=== PATIENT | female | born 1960 | race Two or more races ===

== ENCOUNTER 2016-06-29 12:36 | Emergency (ER) | payer SELFPAY ==
[~2016-06-29 12:36] MED LIST: CETI10TA16 PO; CYCL10TA2 PO; DULO30CA2 PO; HYDR-2666 PO; METR500T PO; NAPR220C4 PO
[2016-06-29 13:58] VITALS: BP 131/60
[2016-06-29] MEDS ORDERED: IV NORMAL SALINE 1000ML BAG 1,000 ML IV SCH (14:33)
--- NOTE | 2016-06-29 14:38 | ED.ADGEN ---
Past Medical History Past Medical History: Fibromyalgia, Other Additional Past Medical Histor: Seasonal allergies, Fibromyalgia Past Surgical History: Cholecystectomy, Hysterectomy Additional Past Surgical Histo: Bilateral oophrectomy Alcohol Use: None Drug Use: None Adult General Chief Complaint Chief Complaint: ABDOMINAL PAIN HPI HPI Patient is a 55 year old female presents emergency department complaining of 2 day history of worsening right upper quadrant pain. She states that it is similar to the pain she is to have with her gallbladder she has associated nausea and vomiting. She has not taken any medications prior to arrival. She does not that she has chronically elevated liver function test. She has recently had a stop her Cymbalta due to lack of insurance coverage. Last bowel movement was today and was normal Review of Systems Review of Systems Constitutional: Denies fever or chills. [] Eyes: Denies change in visual acuity. [] HENT: Denies nasal congestion or sore throat. [] Respiratory: Denies cough or shortness of breath. [] Cardiovascular: Denies chest pain or edema. [] GI: Denies abdominal pain, nausea, vomiting, bloody stools or diarrhea. [] : Denies dysuria. [] Musculoskeletal: Denies back pain or joint pain. [] Integument: Denies rash. [] Neurologic: Denies headache, focal weakness or sensory changes. [] Endocrine: Denies polyuria or polydipsia. [] Lymphatic: Denies swollen glands. [] Psychiatric: Denies depression or anxiety. [] Current Medications Current Medications Current Medications Medications (Trade) Dose Ordered Sig/Cortney Start Time Stop Time Status Last Admin Dose Admin Fentanyl Citrate (Fentanyl 2ml Vial) 75 mcg 1X ONCE 06/29/16 14:45 06/29/16 14:46 DC 06/29/16 15:07 75 MCG Ondansetron HCl 4 mg 4 mg 1X ONCE 06/29/16 14:45 06/29/16 14:46 DC 06/29/16 15:07 4 MG Sodium Chloride (Iv Sodium Chloride 0.9% 1000ml Bag) 1,000 ml @ 1,000 mls/hr Q1H 06/29/16 14:33 06/29/16 15:32 DC 06/29/16 15:06 1,000 MLS/HR Allergies Allergies Allergies Coded Allergies Type Severity Reaction Last Updated Verified Cephalexin Monohydrate Allergy Intermediate Rash 09/25/13 Yes Penicillins Allergy Intermediate Rash 06/14/13 Yes Sulfa (Sulfonamide Antibiotics) Allergy Intermediate Swelling 06/14/13 Yes peanut Allergy Intermediate Rash 02/14/15 Yes Physical Exam Physical Exam Constitutional: Well developed, well nourished, no acute distress, non-toxic appearance. [] HENT: Normocephalic, atraumatic, bilateral external ears normal, oropharynx moist, no oral exudates, nose normal. [] Eyes: PERRLA, EOMI, conjunctiva normal, no discharge. [] Neck: Normal range of motion, no tenderness, supple, no stridor. [] Cardiovascular:Heart rate regular rhythm, no murmur [] Lungs & Thorax: Bilateral breath sounds clear to auscultation [] Abdomen: Bowel sounds normal, soft, epigastric and right upper quadrant tenderness without peritoneal signs, no masses, no pulsatile masses. [] Skin: Warm, dry, no erythema, no rash. [] Back: No tenderness, no CVA tenderness. [] Extremities: No tenderness, no cyanosis, no clubbing, ROM intact, no edema. [] Neurologic: Alert and oriented X 3, normal motor function, normal sensory function, no focal deficits noted. [] Psychologic: Affect normal, judgement normal, mood normal. [] Current Patient Data Vital Signs Vital Signs Date Time Temp Pulse Resp B/P Pulse Ox O2 Delivery O2 Flow Rate FiO2 06/29/16 15:40 Room Air 06/29/16 13:58 97.9 72 18 131/60 99 97.9 Lab Values Laboratory Tests Test 06/29/16 13:55 White Blood Count 5.2x10^3/uL (4.0-11.0) Red Blood Count 4.95x10^6/uL (3.50-5.40) Hemoglobin 14.0g/dL (12.0-15.5) Hematocrit 41.7% (36.0-47.0) Mean Corpuscular Volume 84fL (79-100) Mean Corpuscular Hemoglobin 28pg (25-35) Mean Corpuscular Hemoglobin Concent 34g/dL (31-37) Red Cell Distribution Width 14.6% (11.5-14.5) H Platelet Count 197x10^3/uL (140-400) Neutrophils (%) (Auto) 51% (31-73) Lymphocytes (%) (Auto) 38% (24-48) Monocytes (%) (Auto) 8% (0-9) Eosinophils (%) (Auto) 3% (0-3) Basophils (%) (Auto) 1% (0-3) Neutrophils # (Auto) 2.7x10^3uL (1.8-7.7) Lymphocytes # (Auto) 1.9x10^3/uL (1.0-4.8) Monocytes # (Auto) 0.4x10^3/uL (0.0-1.1) Eosinophils # (Auto) 0.2x10^3/uL (0.0-0.7) Basophils # (Auto) 0.0x10^3/uL (0.0-0.2) Urine Collection Type Unknown Urine Color Yellow Urine Clarity Clear Urine pH 6.5 Urine Specific [place] 1.020 Urine Protein Negativemg/dL (NEG-TRACE) Urine Glucose (UA) Negativemg/dL (NEG) Urine Ketones (Stick) Negativemg/dL (NEG) Urine Blood Negative (NEG) Urine Nitrite Negative (NEG) Urine Bilirubin Negative (NEG) Urine Urobilinogen Dipstick 0.2mg/dL (0.2 mg/dL) Urine Leukocyte Esterase Moderate (NEG) Urine RBC 0/HPF (0-2) Urine WBC 1-4/HPF (0-4) Urine Squamous Epithelial Cells Many/LPF Urine Bacteria Moderate/HPF (0-FEW) Urine Mucus Marked/LPF Sodium Level 139mmol/L (136-145) Potassium Level 4.2mmol/L (3.5-5.1) Chloride Level 103mmol/L (98-107) Carbon Dioxide Level 28mmol/L (21-32) Anion Gap 8 (6-14) Blood Urea Nitrogen 8mg/dL (7-20) Creatinine 0.9mg/dL (0.6-1.0) Estimated GFR (Cockcroft-Gault) 65.0 Glucose Level 138mg/dL (70-99) H Calcium Level 9.1mg/dL (8.5-10.1) Total Bilirubin 0.6mg/dL (0.2-1.0) Direct Bilirubin 0.1mg/dL (0.0-0.2) Aspartate Amino Transferase (AST) 116U/L (15-37) H Alanine Aminotransferase (ALT) 162U/L (14-59) H Alkaline Phosphatase 75U/L (46-116) Troponin I Quantitative 0.018ng/mL (0.000-0.055) Total Protein 7.9g/dL (6.4-8.2) Albumin 3.6g/dL (3.4-5.0) Lipase 451U/L (73-393) H Laboratory Tests 06/29/16 13:55 Laboratory Tests 06/29/16 13:55 EKG EKG EKG interpreted by me, sinus rhythm, 69 beats for minute, no ST segment elevation, normal axis. [] Radiology/Procedures Radiology/Procedures Exam performed: Acute abdominal series. Clinical indication: Abdominal pain for 2 days Date of Service: 06/29/16. Comparison: Single view chest from 07/07/15 Findings: One view chest radiograph reveal a normal cardiomediastinal contour. The lungs are clear. Evidence of pleural fluid or free subdiaphragmatic air is absent. The bowel pattern is unremarkable. No pathologic calcification or organomegaly is seen. Impression: Normal appearing acute abdominal series to include one view chest radiograph. DICTATED and SIGNED BY: HONEY CLARK MD DATE: 06/29/16 5116 CC: HORACE TILLMAN MD; NO PCP ~ [] Course & Med Decision Making Course & Med Decision Making Pertinent Labs and Imaging studies reviewed. (See chart for details) The patient has possible urinary tract infection. I did prescribe her Cipro for this. She also has an elevated lipase and exam consistent with pancreatitis. The patient has had pancreatitis in the past. We talked about supportive care as well as follow-up instructions. At this point, the patient would like to try to treat this at home was Zofran and pain meds. She will of course return to emergency department sooner she develops any new or worsening symptoms. [] Dragon Disclaimer Dragon Disclaimer This electronic medical record was generated, in whole or in part, using a voice recognition dictation system. HORACE TILLMAN MD Jun 29, 2016 14:38
[2016-06-29] MEDS ORDERED: FENTANYL PF 100 MCG/2 ML VIAL. IV ONE (14:45)
[2016-06-29] MEDS ORDERED: ONDANSETRON PF 4 MG/2 ML VIAL. IV ONE (14:45)
[2016-06-29 14:53] LABS: BILIRUBIN,URINE NEGATIVE (NEG); GLUCOSE,URINE NEGATIVE (NEG); NITRITE,URINE NEGATIVE (NEG); PH,URINE 6.5; PROTEIN,URINE NEGATIVE (NEG-TRACE); UROBILINOGEN,URINE 0.2 mg/dL (0.2 mg/dL)
[2016-06-29 15:02] LABS: BASO % 1 % (0-3); EOS % 3 % (0-3); HEMATOCRIT 41.7 % (36.0-47.0); LYMPH # 1.9 x10^3/uL (1.0-4.8); LYMPH % 38 % (24-48); MEAN CORPUSCULAR HEMOGLOBIN 28 pg (25-35); MEAN CORPUSCULAR HGB CONC 34 g/dL (31-37); MEAN CORPUSCULAR VOLUME 84 fL (79-100); MONO % 8 % (0-9); NEUT % 51 % (31-73); PLATELET COUNT 197 x10^3/uL (140-400); RED BLOOD COUNT 4.95 x10^6/uL (3.50-5.40); RED CELL DISTRIBUTION WIDTH 14.6 % (11.5-14.5); WHITE BLOOD COUNT 5.2 x10^3/uL (4.0-11.0)
--- NOTE | 2016-06-29 15:09 | EKG ---
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
[2016-06-29 15:14] LABS: CALCIUM 9.1 mg/dL (8.5-10.1); CREATININE 0.9 mg/dL (0.6-1.0); POTASSIUM 4.2 mmol/L (3.5-5.1)
[2016-06-29 15:20] LABS: ALBUMIN 3.6 g/dL (3.4-5.0); DIRECT BILIRUBIN 0.1 mg/dL (0.0-0.2); TOTAL BILIRUBIN 0.6 mg/dL (0.2-1.0); TOTAL PROTEIN 7.9 g/dL (6.4-8.2)
[2016-06-29 15:21] LABS: BACTERIA,URINE MODERATE /HPF (0-FEW); RBC,URINE 0 /HPF (0-2); SQUAMOUS EPITHELIAL CELL,UR MANY /LPF
[2016-06-29] MEDS ORDERED: CIPR500T94 PO (16:04)
[2016-06-29] MEDS ORDERED: HYDR-971 PO (16:05)
[2016-06-29] MEDS ORDERED: ONDA4TAB10 SL (16:05)
--- NOTE | 2016-06-29 16:17 | RAD ---
Exam performed: Acute abdominal series. Clinical indication: Abdominal pain for 2 days Date of Service: 06/29/16. Comparison: Single view chest from 07/07/15 Findings: One view chest radiograph reveal a normal cardiomediastinal contour. The lungs are clear. Evidence of pleural fluid or free subdiaphragmatic air is absent. The bowel pattern is unremarkable. No pathologic calcification or organomegaly is seen. Impression: Normal appearing acute abdominal series to include one view chest radiograph.
== END 2016-06-29 16:44 | disposition home or self-care (01) ==
LOC: ER 12:36
DX: R10.11 Right upper quadrant pain (principal); Z88.1 Allergy status to other antibiotic agents; Z88.0 Allergy status to penicillin; Z88.2 Allergy status to sulfonamides; Z91.010 Allergy to peanuts
CPT/HCPCS: 36415; 74022; 80048; 80076; 81001; 83690; 84484; 85027; 93005; 96361; 96374; 96375; 99285; J2405; J3010; J7030; 87086

== ENCOUNTER 2016-07-08 19:29 | Emergency (ER) | payer SELFPAY ==
[~2016-07-08] VITALS: Ht 157.5 cm; Wt 99.8 kg
[~2016-07-08 19:29] MED LIST changes: +CIPR500T94 PO; +HYDR-971 PO; +ONDA4TAB10 SL
[2016-07-08 20:13] VITALS: BP 169/73
[2016-07-08] MEDS ORDERED: IBUPROFEN 800 MG TABLET. PO ONE (20:45)
[2016-07-08] MEDS ORDERED: ACETAMINOPHEN 500 MG TABLET PO ONE (20:45)
[2016-07-08 20:56] LABS: OBC FLU VALID
[2016-07-08] MEDS ORDERED: IV NORMAL SALINE 1000ML BAG 1,000 ML IV ONE (21:45)
--- NOTE | 2016-07-08 22:34 | PHYS DOC ---
Past Medical History Past Medical History: Fibromyalgia, Pancreatitis, Other Additional Past Medical Histor: Seasonal allergies, Fibromyalgia Past Surgical History: Cholecystectomy, Hysterectomy Additional Past Surgical Histo: Bilateral oophrectomy Alcohol Use: None Drug Use: None Adult General Chief Complaint Chief Complaint: SYNCOPE HPI HPI Patient is a 55 year old female who presents with 2 days of cough, rhinorrhea, chills, myalgia, and fatigue. She denies chest pain, dyspnea, palpitations, leg pain or swelling, diarrhea. Denies sick contacts. She does have some lightheadedness and when she went to chest x-ray she had a pre-syncopal episode. She was feeling lightheaded, then her vision narrowed, then she did not pass all the way out but felt very weak. Review of Systems Review of Systems Constitutional: Has fever and chills [] Eyes: Denies change in visual acuity, redness, or eye pain [] HENT: Denies sore throat [] Respiratory: Denies shortness of breath [] Cardiovascular: No additional information not addressed in HPI [] GI: Denies abdominal pain, nausea, vomiting, bloody stools or diarrhea [] : Denies dysuria or hematuria [] Musculoskeletal: Denies back pain or joint pain [] Integument: Denies rash or skin lesions [] Neurologic: Denies headache, focal weakness or sensory changes [] Endocrine: Denies polyuria or polydipsia [] Current Medications Current Medications Current Medications Medications (Trade) Dose Ordered Sig/Cortney Start Time Stop Time Status Last Admin Dose Admin Acetaminophen (Tylenol) 1,000 mg 1X ONCE 07/08/16 20:45 07/08/16 20:46 DC 07/08/16 20:52 1,000 MG Ibuprofen 800 mg 800 mg 1X ONCE 07/08/16 20:45 07/08/16 20:46 DC 07/08/16 20:52 800 MG Sodium Chloride (Iv Sodium Chloride 0.9% 1000ml Bag) 1,000 ml @ 1,000 mls/hr 1X ONCE 07/08/16 21:45 07/08/16 22:44 DC 07/08/16 21:46 1,000 MLS/HR Allergies Allergies Allergies Coded Allergies Type Severity Reaction Last Updated Verified Cephalexin Monohydrate Allergy Intermediate Rash 09/25/13 Yes Penicillins Allergy Intermediate Rash 06/14/13 Yes Sulfa (Sulfonamide Antibiotics) Allergy Intermediate Swelling 06/14/13 Yes peanut Allergy Intermediate Rash 02/14/15 Yes Physical Exam Physical Exam Constitutional: Well developed, well nourished, no acute distress, non-toxic appearance. [] HENT: Normocephalic, atraumatic, bilateral external ears normal, oropharynx moist, nose normal. [] Eyes: PERRLA, EOMI. [] Neck: Normal range of motion, supple. [] Cardiovascular:Heart rate regular rhythm [] Lungs & Thorax: Bilateral breath sounds clear to auscultation [] Abdomen: Bowel sounds normal, soft, no tenderness. [] Skin: Warm, dry, no erythema, no rash. [] Back: Normal range of motion. [] Extremities: No tenderness, ROM intact, no edema. [] Neurologic: Alert and oriented X 3, normal motor function, normal sensory function, no focal deficits noted. [] Psychologic: Affect normal, judgement normal, mood normal. [] Current Patient Data Vital Signs Vital Signs Date Time Temp Pulse Resp B/P Pulse Ox O2 Delivery O2 Flow Rate FiO2 07/08/16 20:13 102.3 110 18 99 Room Air 102.3 Lab Values Laboratory Tests Test 07/08/16 20:18 07/08/16 21:24 Influenza Type A Antigen Positive (NEGATIVE) Influenza Type B Antigen Negative (NEGATIVE) Glucose (Fingerstick) 112mg/dL (70-99) H Course & Med Decision Making Course & Med Decision Making Pertinent Labs and Imaging studies reviewed. (See chart for details) She is positive for influenza A. She feels better after IV fluids. She is ambulatory with a steady gait and would like to go home. I offered Tamiflu, but she declined. Return precautions given. She understands and agrees with plan. Dragon Disclaimer Dragon Disclaimer This electronic medical record was generated, in whole or in part, using a voice recognition dictation system. Departure Departure Impression: Primary Impression: Influenza Disposition: 01 HOME, SELF-CARE Condition: STABLE Referrals: NO PCP (PCP) Patient Instructions: Influenza, Adult, [id number] Additional Instructions: Drink liquids to stay hydrated. Take Tylenol or ibuprofen as needed for pain or fever. Follow-up with your primary care doctor. Return for any concerns. Ca VIVEROS MD Jul 08, 2016 22:33
--- NOTE | 2016-07-09 07:46 | RAD ---
2 view CXR: Clinical indications: Fever and shortness of breath for 2 days. Comparison: June 29, 2016. Findings: No acute lung infiltrate or pleural effusion or pulmonary edema or lung mass or pneumothorax is seen. The heart size, pulmonary vasculature, mediastinum and both delma are unremarkable. The osseous structures appear intact. Impression: No acute radiographic abnormality is seen.
== END 2016-07-08 22:46 | disposition home or self-care (01) ==
LOC: ER 19:29
DX: J11.1 Influenza due to unidentified influenza virus with other respiratory manifestations (principal); M79.7 Fibromyalgia; Z88.0 Allergy status to penicillin; Z88.2 Allergy status to sulfonamides; Z88.1 Allergy status to other antibiotic agents; Z91.010 Allergy to peanuts
CPT/HCPCS: 71020; 82947; 87804; 96360; 99285; J7030

== ENCOUNTER 2017-09-25 19:16 | Emergency (ER) | payer SELFPAY | END 2017-09-25 19:40 | disposition home or self-care (01) | LOC: ER 19:16 | DX: L85.3 Xerosis cutis (principal); Z90.49 Acquired absence of other specified parts of digestive tract; Z90.710 Acquired absence of both cervix and uterus; Z90.722 Acquired absence of ovaries, bilateral; Z88.0 Allergy status to penicillin; Z88.2 Allergy status to sulfonamides; Z88.1 Allergy status to other antibiotic agents; Z91.010 Allergy to peanuts | CPT/HCPCS: 99283 ==

== ENCOUNTER 2017-12-30 02:06 | Emergency (ER) | payer OTHER ==
[2017-12-30 02:54] LABS: ADD MAN DIFF? NO
[2017-12-30 02:57] LABS: BASO % 1 % (0-3); EOS # 0.1 x10^3/uL (0.0-0.7); EOS % 2 % (0-3); HEMATOCRIT 42.2 % (36.0-47.0); HEMOGLOBIN 14.9 g/dL (12.0-15.5); LYMPH % 31 % (24-48); MEAN CORPUSCULAR HEMOGLOBIN 29 pg (25-35); MEAN CORPUSCULAR HGB CONC 35 g/dL (31-37); MEAN CORPUSCULAR VOLUME 82 fL (79-100); MONO # 0.4 x10^3/uL (0.0-1.1); MONO % 5 % (0-9); NEUT # 4.1 x10^3uL (1.8-7.7); NEUT % 62 % (31-73); PLATELET COUNT 216 x10^3/uL (140-400); RED BLOOD COUNT 5.14 x10^6/uL (3.50-5.40); RED CELL DISTRIBUTION WIDTH 14.1 % (11.5-14.5); WHITE BLOOD COUNT 6.6 x10^3/uL (4.0-11.0)
[2017-12-30] MEDS: ONDANSETRON PF 4 MG/2 ML VIAL. IV (02:58)
[2017-12-30] MEDS: HYOSCYAMINE 0.125 MG TAB.RAPDIS PO (02:58)
[2017-12-30] MEDS: FAMOTIDINE 20 MG/2 ML VIAL IVP (02:58)
[2017-12-30 03:09] LABS: ANION GAP 12 (6-14); BLOOD UREA NITROGEN 12 mg/dL (7-20); BUN/CREATININE RATIO 12 (6-20); CALCIUM 9.7 mg/dL (8.5-10.1); CARBON DIOXIDE 24 mmol/L (21-32); CHLORIDE 100 mmol/L (98-107); GFR 57.1; GLUCOSE 132 mg/dL (70-99); POTASSIUM 3.6 mmol/L (3.5-5.1); SODIUM 136 mmol/L (136-145)
[2017-12-30 03:14] LABS: ALBUMIN/GLOBULIN RATIO 0.9 (1.0-1.7); ALK PHOS 68 U/L (46-116); ALT (SGPT) 68 U/L (14-59); AST (SGOT) 46 U/L (15-37); BILIRUBIN,URINE SMALL (NEG); CLARITY,URINE CLEAR; COLOR,URINE AMBER; GLUCOSE,URINE NEGATIVE (NEG); LIPASE 259 U/L (73-393); MAGNESIUM 2.1 mg/dL (1.8-2.4); NITRITE,URINE NEGATIVE (NEG); PH,URINE 5.5; PROTEIN,URINE NEGATIVE (NEG-TRACE); TOTAL BILIRUBIN 0.8 mg/dL (0.2-1.0); TOTAL PROTEIN 8.4 g/dL (6.4-8.2); UROBILINOGEN,URINE 0.2 mg/dL (0.2 mg/dL)
[2017-12-30 03:26] LABS: BACTERIA,URINE FEW /HPF (0-FEW); WBC,URINE OCC /HPF (0-4)
[2017-12-30 03:27] LABS: AMORPHOUS SEDIMENT,UR PRESENT /HPF; SQUAMOUS EPITHELIAL CELL,UR MOD /LPF
== END 2017-12-30 04:50 | disposition home or self-care (01) ==
LOC: ER 02:06
DX: R10.84 Generalized abdominal pain (principal); R11.2 Nausea with vomiting, unspecified; R10.13 Epigastric pain; R19.7 Diarrhea, unspecified; Z90.49 Acquired absence of other specified parts of digestive tract; Z90.710 Acquired absence of both cervix and uterus; Z90.722 Acquired absence of ovaries, bilateral; Z88.0 Allergy status to penicillin; Z88.1 Allergy status to other antibiotic agents; Z88.2 Allergy status to sulfonamides; Z91.010 Allergy to peanuts
CPT/HCPCS: 36415; 80053; 81001; 83690; 83735; 85025; 96374; 96375; 99284-25; J2405; S0028

== ENCOUNTER → 2017-12-30 | Day surgery (SDC) | payer OTHER, BC ==
[~2017-12-30] MED LIST changes: -CETI10TA16 PO; -CIPR500T94 PO; -CYCL10TA2 PO; -DULO30CA2 PO; -HYDR-2666 PO; -HYDR-971 PO; +LIDOCAINE 1% PF 2 ML VIAL. ID; +LIDOCAINE 2% PF Vial for OR 5 ML VIAL.; -METR500T PO; +MORPHINE SULFATE 2 MG/ML DISP.SYRIN. IV; -NAPR220C4 PO; -ONDA4TAB10 SL; +ONDANSETRON PF 4 MG/2 ML VIAL. IV; +PROCHLORPERAZINE 10 MG/2 ML VIAL. IV; +PROPOFOL 40 ML IV; +fentaNYL PF VIAL 100 MCG/2 ML VIAL IV
[2017-12-30] MEDS: IV RINGERS,LACTATED 1000ML 1,000 ML IV (11:51)
== END | disposition home or self-care (01) ==
LOC: ENDOS 11:08
DX: Z12.11 Encounter for screening for malignant neoplasm of colon (principal); K64.0 First degree hemorrhoids; K21.9 Gastro-esophageal reflux disease without esophagitis; J45.909 Unspecified asthma, uncomplicated; Z87.19 Personal history of other diseases of the digestive system; Z90.49 Acquired absence of other specified parts of digestive tract; Z90.710 Acquired absence of both cervix and uterus; Z79.899 Other long term (current) drug therapy; Z82.49 Family history of ischemic heart disease and other diseases of the circulatory system; Z80.0 Family history of malignant neoplasm of digestive organs; Z88.0 Allergy status to penicillin; Z88.1 Allergy status to other antibiotic agents; Z91.010 Allergy to peanuts; Z90.722 Acquired absence of ovaries, bilateral
CPT/HCPCS: 45378; J2001; J2704

== ENCOUNTER 2018-03-27 09:13 | Emergency (ER) | payer OTHER ==
[~2018-03-27] VITALS: Ht 162.6 cm; Wt 99.5 kg
[~2018-03-27 09:13] MED LIST changes: +CETI10TA16 PO; +CIPR500T94 PO; +CLIN300C8 PO; +CYCL10TA2 PO; +DULO30CA2 PO; +GABA-585 PO; +HYDR-2758 PO; +HYDR-971 PO; +HYOS0.1265 SL; -LIDOCAINE 1% PF 2 ML VIAL. ID; -LIDOCAINE 2% PF Vial for OR 5 ML VIAL.; +METR500T PO; -MORPHINE SULFATE 2 MG/ML DISP.SYRIN. IV; +NAPR220C4 PO; +ONDA4TAB10 SL; +ONDA4TAB7 PO; -ONDANSETRON PF 4 MG/2 ML VIAL. IV; -PROCHLORPERAZINE 10 MG/2 ML VIAL. IV; -PROPOFOL 40 ML IV; -fentaNYL PF VIAL 100 MCG/2 ML VIAL IV
[2018-03-27 09:22] VITALS: BP 131/76
--- NOTE | 2018-03-27 09:39 | PHYS DOC ---
Past Medical History Past Medical History: Fibromyalgia, Pancreatitis, Other Additional Past Medical Histor: Seasonal allergies, Fibromyalgia Past Surgical History: Cholecystectomy, Hysterectomy Additional Past Surgical Histo: Bilateral oophrectomy Alcohol Use: None Drug Use: None Adult General Chief Complaint Chief Complaint: COUGH HPI HPI Patient is a 57 year old female who presents with respiratory symptoms. Patient states she has been ill over the last month. She had upper respiratory symptoms including runny nose, cough, congestion, and general malaise. She states over the last several days, her cough has worsened and now she is coughing up sputum. No fever. She had been evaluated for the same sx by her PCP and prescribed some medication to help with her cough symptoms. Review of Systems Review of Systems Constitutional: Denies fever Eyes: Denies change in visual acuity HENT: Denies sore throat Respiratory: Denies shortness of breath Cardiovascular: No additional information not addressed in HPI GI: Denies abdominal pain, nausea : Denies dysuria Musculoskeletal: Denies back pain Integument: Denies rash or skin lesions Neurologic: Denies headache All other systems were reviewed and found to be within normal limits, except as documented in this note. Allergies Allergies Allergies Coded Allergies Type Severity Reaction Last Updated Verified Cephalexin Monohydrate Allergy Intermediate Rash 12/30/17 Yes Penicillins Allergy Intermediate Rash 12/30/17 Yes Sulfa (Sulfonamide Antibiotics) Allergy Intermediate Swelling 12/30/17 Yes peanut Allergy Intermediate Rash 12/30/17 Yes Physical Exam Physical Exam Constitutional: Well developed, well nourished, no acute distress, non-toxic HENT: Normocephalic, atraumatic, bilateral external ears normal, oropharynx moist, no oral exudates Eyes: PERRLA, EOMI, conjunctiva normal Neck: Normal range of motion, no tenderness Cardiovascular:Heart rate regular rhythm, no murmur Lungs & Thorax: Bilateral breath sounds clear to auscultation Skin: Warm, dry, no erythema, no rash Extremities: No edema Neurologic: Alert and oriented X 3 Psychologic: Affect normal EKG EKG [] Radiology/Procedures Radiology/Procedures [] Course & Med Decision Making Course & Med Decision Making Pertinent Labs and Imaging studies reviewed. (See chart for details) Patient is evaluated in the emergency department for respiratory symptoms that have been going on for over a month. Her lung sounds are clear. She has good air movement in all wilkes. Posterior oral pharynx is mildly injected but no exudates. Given the chronicity of her symptoms, the patient will be treated with azithromycin. She is advised to use [id number] cold remedies as needed for symptom relief. Contact her primary care doctor for routine follow- up as needed. Dragon Disclaimer Dragon Disclaimer This electronic medical record was generated, in whole or in part, using a voice recognition dictation system. Departure Departure Referrals: WARREN CALDERON MD (PCP) ESTRELLA MONTELONGO DO Mar 27, 2018 09:39
[2018-03-27] MEDS ORDERED: AZIT250T6 PO (09:42)
[2018-03-27] MEDS ORDERED: BENZ100C PO (09:42)
== END 2018-03-27 09:40 | disposition home or self-care (01) ==
LOC: ER 09:13
DX: R05 Cough (principal); R09.81 Nasal congestion; R09.89 Other specified symptoms and signs involving the circulatory and respiratory systems; R53.81 Other malaise; Z88.0 Allergy status to penicillin; Z88.1 Allergy status to other antibiotic agents; Z88.2 Allergy status to sulfonamides; Z91.010 Allergy to peanuts
CPT/HCPCS: 99283

== ENCOUNTER 2018-06-30 06:30 | Emergency (ER) | payer OTHER ==
[~2018-06-30] VITALS: Ht 165.1 cm; Wt 95.3 kg
[~2018-06-30 06:30] MED LIST changes: +AZIT250T6 PO; +BENZ100C PO; -HYDR-2758 PO; +HYDR-2761 PO; +HYDR-3164 PO; -HYDR-971 PO
[2018-06-30] MEDS ORDERED: ONDANSETRON PF 4 MG/2 ML VIAL. IV ONE (07:00)
[2018-06-30] MEDS ORDERED: MORPHINE SULFATE 10 MG/ML VIAL. IV ONE (07:00)
[2018-06-30 07:01] LABS: BILIRUBIN,URINE NEGATIVE (NEG); CLARITY,URINE CLEAR; COLOR,URINE YELLOW; NITRITE,URINE NEGATIVE (NEG); PH,URINE 5.5; PROTEIN,URINE NEGATIVE (NEG-TRACE); UROBILINOGEN,URINE 0.2 mg/dL (0.2 mg/dL)
[2018-06-30 07:18] LABS: BASO % 1 % (0-3); EOS # 0.2 x10^3/uL (0.0-0.7); EOS % 4 % (0-3); HEMATOCRIT 42.8 % (36.0-47.0); HEMOGLOBIN 14.2 g/dL (12.0-15.5); LYMPH # 2.5 x10^3/uL (1.0-4.8); LYMPH % 45 % (24-48); MEAN CORPUSCULAR HEMOGLOBIN 28 pg (25-35); MEAN CORPUSCULAR HGB CONC 33 g/dL (31-37); MEAN CORPUSCULAR VOLUME 84 fL (79-100); MONO # 0.4 x10^3/uL (0.0-1.1); MONO % 7 % (0-9); NEUT # 2.4 x10^3uL (1.8-7.7); NEUT % 43 % (31-73); PLATELET COUNT 195 x10^3/uL (140-400); RED BLOOD COUNT 5.11 x10^6/uL (3.50-5.40); RED CELL DISTRIBUTION WIDTH 13.9 % (11.5-14.5); WHITE BLOOD COUNT 5.5 x10^3/uL (4.0-11.0)
[2018-06-30 07:20] LABS: BACTERIA,URINE MODERATE /HPF (0-FEW); SQUAMOUS EPITHELIAL CELL,UR MANY /LPF
[2018-06-30 07:41] LABS: CALCIUM 9.1 mg/dL (8.5-10.1)
[2018-06-30 07:42] LABS: GFR 57.1; POTASSIUM 3.9 mmol/L (3.5-5.1)
[2018-06-30 07:47] LABS: ALBUMIN 3.8 g/dL (3.4-5.0); ALBUMIN/GLOBULIN RATIO 0.9 (1.0-1.7); C-REACTIVE PROTEIN 1.8 mg/L (0-3.3); TOTAL BILIRUBIN 0.5 mg/dL (0.2-1.0); TOTAL PROTEIN 7.9 g/dL (6.4-8.2)
[2018-06-30 08:43] VITALS: BP 154/67
--- NOTE | 2018-06-30 08:55 | PHYS DOC ---
Past Medical History Past Medical History: Fibromyalgia, Kidney Stone, Pancreatitis, Other Additional Past Medical Histor: Seasonal allergies, Fibromyalgia Past Surgical History: Cholecystectomy, Hysterectomy Additional Past Surgical Histo: Bilateral oophrectomy Alcohol Use: None Drug Use: None Adult General Chief Complaint Chief Complaint: ABDOMINAL PAIN HPI HPI Patient is a 57 year old female who presents with midabdominal pain starting this morning. Pain is nonradiating and expiratory throughout upper quadrant. Status post nausea vomiting diarrhea. No flank pain, urinary frequency urgency or hematuria. No history of kidney stones. No fever chills or sweats. No cough, sore throat, chest pain, shortness of breath. Prior cholecystectomy, hysterectomy and bilateral salpingo-oophorectomy. [] Review of Systems Review of Systems Review symptoms as per history of present illness. All other review symptoms are negative. All other systems were reviewed and found to be within normal limits, except as documented in this note. Current Medications Current Medications Current Medications Medications (Trade) Dose Ordered Sig/Cortney Start Time Stop Time Status Last Admin Dose Admin Morphine Sulfate (Morphine Sulfate) 5 mg 1X ONCE 06/30/18 07:00 06/30/18 07:01 DC 06/30/18 07:20 5 MG Ondansetron HCl (Zofran) 4 mg 1X ONCE 06/30/18 07:00 06/30/18 07:01 DC 06/30/18 07:18 4 MG Allergies Allergies Allergies Coded Allergies Type Severity Reaction Last Updated Verified Cephalexin Monohydrate Allergy Intermediate Rash 12/30/17 Yes Penicillins Allergy Intermediate Rash 12/30/17 Yes Sulfa (Sulfonamide Antibiotics) Allergy Intermediate Swelling 12/30/17 Yes peanut Allergy Intermediate Rash 12/30/17 Yes Physical Exam Physical Exam Constitutional: Well developed, well nourished, no acute distress, non-toxic appearance. [] HENT: Normocephalic, atraumatic, bilateral external ears normal, oropharynx moist, no oral exudates, nose normal. [] Eyes: PERRLA, EOMI, conjunctiva normal, no discharge. [] Neck: Normal range of motion, no tenderness, supple, no stridor. [] Cardiovascular:Heart rate regular rhythm, no murmur [] Lungs & Thorax: Bilateral breath sounds clear to auscultation [] Abdomen: Bowel sounds normal, soft, epigastric pain, right upper quadrant pain, tenderness, no rebound, obesity compromising exam.. [] Skin: Warm, dry, no erythema, no rash. [] Back: No tenderness. [] Neurologic: Alert and oriented X 3, normal motor function, normal sensory function, no focal deficits noted. [] Psychologic: Affect normal, judgement normal, mood normal. [] Current Patient Data Vital Signs Vital Signs Date Time Temp Pulse Resp B/P (MAP) Pulse Ox O2 Delivery O2 Flow Rate FiO2 06/30/18 07:20 20 98 Room Air 06/30/18 06:38 98.1 78 165/78 (107) 98.1 Lab Values Laboratory Tests Test 06/30/18 06:30 06/30/18 07:00 Urine Collection Type Void Urine Color Yellow Urine Clarity Clear Urine pH 5.5 Urine Specific [place] 1.015 Urine Protein Negative mg/dL (NEG-TRACE) Urine Glucose (UA) Negative mg/dL (NEG) Urine Ketones (Stick) Negative mg/dL (NEG) Urine Blood Small (NEG) Urine Nitrite Negative (NEG) Urine Bilirubin Negative (NEG) Urine Urobilinogen Dipstick 0.2 mg/dL (0.2 mg/dL) Urine Leukocyte Esterase Moderate (NEG) Urine RBC 3-5 /HPF (0-2) Urine WBC 5-10 /HPF (0-4) Urine Squamous Epithelial Cells Many /LPF Urine Bacteria Moderate /HPF (0-FEW) Urine Mucus Mod /LPF White Blood Count 5.5 x10^3/uL (4.0-11.0) Red Blood Count 5.11 x10^6/uL (3.50-5.40) Hemoglobin 14.2 g/dL (12.0-15.5) Hematocrit 42.8 % (36.0-47.0) Mean Corpuscular Volume 84 fL (79-100) Mean Corpuscular Hemoglobin 28 pg (25-35) Mean Corpuscular Hemoglobin Concent 33 g/dL (31-37) Red Cell Distribution Width 13.9 % (11.5-14.5) Platelet Count 195 x10^3/uL (140-400) Neutrophils (%) (Auto) 43 % (31-73) Lymphocytes (%) (Auto) 45 % (24-48) Monocytes (%) (Auto) 7 % (0-9) Eosinophils (%) (Auto) 4 % (0-3) H Basophils (%) (Auto) 1 % (0-3) Neutrophils # (Auto) 2.4 x10^3uL (1.8-7.7) Lymphocytes # (Auto) 2.5 x10^3/uL (1.0-4.8) Monocytes # (Auto) 0.4 x10^3/uL (0.0-1.1) Eosinophils # (Auto) 0.2 x10^3/uL (0.0-0.7) Basophils # (Auto) 0.0 x10^3/uL (0.0-0.2) Sodium Level 137 mmol/L (136-145) Potassium Level 3.9 mmol/L (3.5-5.1) Chloride Level 102 mmol/L (98-107) Carbon Dioxide Level 27 mmol/L (21-32) Anion Gap 8 (6-14) Blood Urea Nitrogen 11 mg/dL (7-20) Creatinine 1.0 mg/dL (0.6-1.0) Estimated GFR (Cockcroft-Gault) 57.1 BUN/Creatinine Ratio 11 (6-20) Glucose Level 110 mg/dL (70-99) H Calcium Level 9.1 mg/dL (8.5-10.1) Total Bilirubin 0.5 mg/dL (0.2-1.0) Aspartate Amino Transferase (AST) 45 U/L (15-37) H Alanine Aminotransferase (ALT) 70 U/L (14-59) H Alkaline Phosphatase 65 U/L (46-116) C-Reactive Protein, Quantitative 1.8 mg/L (0-3.3) Total Protein 7.9 g/dL (6.4-8.2) Albumin 3.8 g/dL (3.4-5.0) Albumin/Globulin Ratio 0.9 (1.0-1.7) L Lipase 324 U/L (73-393) Laboratory Tests 06/30/18 07:00 Laboratory Tests 06/30/18 07:00 EKG EKG [] Radiology/Procedures Radiology/Procedures [] Course & Med Decision Making Course & Med Decision Making Pertinent Labs and Imaging studies reviewed. (See chart for details) [Symptoms resolved in ED. Lab work reassuring. Recommend watchful waiting PCP follow-up. Return precautions reviewed. Patient verbalizes understanding agreement discharge instructions prior to departure.] Dragon Disclaimer Dragon Disclaimer This electronic medical record was generated, in whole or in part, using a voice recognition dictation system. Departure Departure Impression: Primary Impression: Abdominal pain Disposition: 01 HOME, SELF-CARE Condition: GOOD Patient Instructions: Abdominal Pain (Nonspecific) Additional Instructions: You were in the evaluated emergency department for abdominal pain. Lab work was performed and is nondiagnostic. The cause of your symptoms has not been determined. Please go home and rest, eat bland diet for the next 6-12 hours then progress to a regular diet as tolerated. Follow-up with your PCP in 2-3 days if symptoms persist. Return to the ED if new or worsening symptoms. MARTHA ARRIAZA DO Jun 30, 2018 08:55
== END 2018-06-30 08:55 | disposition home or self-care (01) ==
LOC: ER 06:30
DX: R10.13 Epigastric pain (principal); R10.11 Right upper quadrant pain; R11.2 Nausea with vomiting, unspecified; R19.7 Diarrhea, unspecified; E66.9 Obesity, unspecified; Z68.34 Body mass index [BMI] 34.0-34.9, adult; Z90.49 Acquired absence of other specified parts of digestive tract; Z90.710 Acquired absence of both cervix and uterus; Z90.722 Acquired absence of ovaries, bilateral; Z87.442 Personal history of urinary calculi; Z88.1 Allergy status to other antibiotic agents; Z88.0 Allergy status to penicillin; Z88.2 Allergy status to sulfonamides; Z91.010 Allergy to peanuts
CPT/HCPCS: 36415; 80053; 81001; 83690; 85025; 86140; 87086; 96374; 96375; 99283; J2270; J2405; 99284

== ENCOUNTER → 2018-09-16 | Outpatient (CLI) | payer OTHER ==
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
== END | disposition home or self-care (01) ==
LOC: KCIC 12:52
PROVIDERS: ATTEND Internal Medicine
DX: S89.92XD Unspecified injury of left lower leg, subsequent encounter (principal); V79.9 Bus occupant (driver) (passenger) injured in unspecified traffic accident
CPT/HCPCS: 72170; 73552; 73590

== ENCOUNTER 2019-02-09 13:15 | Emergency (ER) | payer OTHER ==
[~2019-02-09] VITALS: Ht 157.5 cm; Wt 97.5 kg
[2019-02-09] MEDS ORDERED: IV NORMAL SALINE 1000ML BAG 1,000 ML IV ONE (14:15)
[2019-02-09] MEDS ORDERED: ONDANSETRON PF 4 MG/2 ML VIAL. IV ONE (14:15)
--- NOTE | 2019-02-09 14:18 | PHYS DOC ---
Past Medical History Past Medical History: Fibromyalgia, Kidney Stone, Pancreatitis, Other Additional Past Medical Histor: Seasonal allergies, Fibromyalgia, NEUROPATHY Past Surgical History: Cholecystectomy, Hysterectomy Additional Past Surgical Histo: Bilateral oophrectomy Alcohol Use: None Drug Use: None Adult General Chief Complaint Chief Complaint: ABDOMINAL PAIN [facility] HPI Patient is a 58 year old female who presents with abdominal pain since 2 AM today. Also has been having diarrhea since yesterday. She states she's been having nausea and loss of appetite as well. Denies fever, denies vomiting. Rates her pain as 5 out of 10 out of severity. Reports Imodium prior to arrival no other medicines. Review of Systems Review of Systems Constitutional: Denies fever or chills [] Eyes: Denies change in visual acuity, redness, or eye pain [] HENT: Denies nasal congestion or sore throat [] Respiratory: Denies cough or shortness of breath [] Cardiovascular: No additional information not addressed in HPI [] GI: Reports abdominal pain, nausea, and diarrhea [] : Denies dysuria or hematuria [] Musculoskeletal: Denies back pain or joint pain [] Integument: Denies rash or skin lesions [] Neurologic: Denies headache, focal weakness or sensory changes [] Endocrine: Denies polyuria or polydipsia [] Complete systems were reviewed and found to be within normal limits, except as documented in this note. Current Medications Current Medications Current Medications Medications (Trade) Dose Ordered Sig/Cortney Start Time Stop Time Status Last Admin Dose Admin Info (CONTRAST GIVEN -- Rx MONITORING) 1 each PRN DAILY PRN 02/09/19 14:45 02/11/19 14:44 Iohexol (Omnipaque 300 Mg/ml) 75 ml 1X ONCE 02/09/19 14:45 02/09/19 14:46 DC 02/09/19 14:48 75 ML Ondansetron HCl (Zofran) 4 mg 1X ONCE 02/09/19 14:15 02/09/19 14:16 DC 02/09/19 14:38 4 MG Sodium Chloride 1,000 ml @ 1,000 mls/hr 1X ONCE 02/09/19 14:15 02/09/19 15:14 DC 02/09/19 14:38 1,000 MLS/HR Allergies Allergies Allergies Coded Allergies Type Severity Reaction Last Updated Verified Cephalexin Monohydrate Allergy Intermediate Rash 12/30/17 Yes Penicillins Allergy Intermediate Rash 12/30/17 Yes Sulfa (Sulfonamide Antibiotics) Allergy Intermediate Swelling 12/30/17 Yes peanut Allergy Intermediate Rash 12/30/17 Yes Physical Exam Physical Exam Constitutional: Well developed, well nourished, no acute distress, non-toxic appearance. [] HENT: Normocephalic, atraumatic, bilateral external ears normal, oropharynx moist, no oral exudates, nose normal. [] Eyes: PERRLA, EOMI, conjunctiva normal, no discharge. [] Neck: Normal range of motion, no tenderness, supple, no stridor. [] Cardiovascular:Heart rate regular rhythm, no murmur [] Lungs & Thorax: Bilateral breath sounds clear to auscultation [] Abdomen: Bowel sounds normal, soft, diffuse tenderness, no masses, no pulsatile masses. [] Skin: Warm, dry, no erythema, no rash. [] Back: No tenderness, no CVA tenderness. [] Extremities: No tenderness, no cyanosis, no clubbing, ROM intact, no edema. [] Neurologic: Alert and oriented X 3, normal motor function, normal sensory function, no focal deficits noted. [] Psychologic: Affect normal, judgement normal, mood normal. [] Current Patient Data Vital Signs Vital Signs Date Time Temp Pulse Resp B/P (MAP) Pulse Ox O2 Delivery O2 Flow Rate FiO2 02/09/19 13:30 97.8 71 18 150/67 (94) 97 Room Air 97.8 Lab Values Laboratory Tests Test 02/09/19 13:24 02/09/19 13:35 Urine Collection Type Unknown Urine Color Yellow Urine Clarity Clear Urine pH 5.0 Urine Specific [place] 1.010 Urine Protein Negative mg/dL (NEG-TRACE) Urine Glucose (UA) Negative mg/dL (NEG) Urine Ketones (Stick) Negative mg/dL (NEG) Urine Blood Trace (NEG) Urine Nitrite Negative (NEG) Urine Bilirubin Negative (NEG) Urine Urobilinogen Dipstick 0.2 mg/dL (0.2 mg/dL) Urine Leukocyte Esterase Trace (NEG) Urine RBC Rare /HPF (0-2) Urine WBC Occ /HPF (0-4) Urine Squamous Epithelial Cells Many /LPF Urine Bacteria Moderate /HPF (0-FEW) Urine Mucus Mod /LPF White Blood Count 5.5 x10^3/uL (4.0-11.0) Red Blood Count 5.04 x10^6/uL (3.50-5.40) Hemoglobin 14.4 g/dL (12.0-15.5) Hematocrit 42.4 % (36.0-47.0) Mean Corpuscular Volume 84 fL (79-100) Mean Corpuscular Hemoglobin 29 pg (25-35) Mean Corpuscular Hemoglobin Concent 34 g/dL (31-37) Red Cell Distribution Width 14.2 % (11.5-14.5) Platelet Count 200 x10^3/uL (140-400) Neutrophils (%) (Auto) 41 % (31-73) Lymphocytes (%) (Auto) 47 % (24-48) Monocytes (%) (Auto) 8 % (0-9) Eosinophils (%) (Auto) 4 % (0-3) H Basophils (%) (Auto) 1 % (0-3) Neutrophils # (Auto) 2.3 x10^3/uL (1.8-7.7) Lymphocytes # (Auto) 2.6 x10^3/uL (1.0-4.8) Monocytes # (Auto) 0.4 x10^3/uL (0.0-1.1) Eosinophils # (Auto) 0.2 x10^3/uL (0.0-0.7) Basophils # (Auto) 0.0 x10^3/uL (0.0-0.2) Sodium Level 143 mmol/L (136-145) Potassium Level 4.0 mmol/L (3.5-5.1) Chloride Level 106 mmol/L (98-107) Carbon Dioxide Level 26 mmol/L (21-32) Anion Gap 11 (6-14) Blood Urea Nitrogen 10 mg/dL (7-20) Creatinine 0.9 mg/dL (0.6-1.0) Estimated GFR (Cockcroft-Gault) 64.3 BUN/Creatinine Ratio 11 (6-20) Glucose Level 81 mg/dL (70-99) Calcium Level 9.5 mg/dL (8.5-10.1) Total Bilirubin 0.6 mg/dL (0.2-1.0) Aspartate Amino Transferase (AST) 38 U/L (15-37) H Alanine Aminotransferase (ALT) 49 U/L (14-59) Alkaline Phosphatase 69 U/L (46-116) Total Protein 8.0 g/dL (6.4-8.2) Albumin 4.0 g/dL (3.4-5.0) Albumin/Globulin Ratio 1.0 (1.0-1.7) Lipase 317 U/L (73-393) Laboratory Tests 02/09/19 13:35 Laboratory Tests 02/09/19 13:35 EKG EKG [] Radiology/Procedures Radiology/Procedures [] IMAGING REPORT Signed PATIENT: AURA BURKETT ACCOUNT: [id number] : 1960 LOCATION: ER AGE: 58 SEX: F EXAM STATUS: REG ER ORD. PHYSICIAN: LYNN BRYAN APRN REASON: abd pain PROCEDURE: CT ABD PELV W/ IV CONTRST ONLY CT study of the abdomen and pelvis with contrast Clinical indications: Right lower quadrant abdominal pain for 2 days. TECHNIQUE: After IV infusion of 75 cc Omnipaque 300, helical CT scanning of the abdomen and pelvis was performed. GI contrast was not administered. This may decrease the sensitivity to detect GI tract pathology. PQRS COMPLIANCE STATEMENT One or more of the following individualized dose reduction techniques were utilized for this study: 1. Automated exposure control 2. Adjustment of the mA and/or kV according to patient size 3. Use of iterative reconstruction technique COMPARISON: January 10, 2016. FINDINGS: No liver and spleen and pancreas are normal. The gallbladder is surgically absent. There is dilatation of the extrahepatic biliary tree down into the pancreas. The common bile duct measures 13 mm in caliber which is dilated. This is unchanged from the previous study. No right adrenal mass is evident. There is a nodule of the left adrenal gland measuring 2.2 cm in size. This is unchanged consistent with an adrenal adenoma. No hydronephrosis is seen. There is a small lower pole right renal cyst which has not changed significantly. No focal aneurysmal dilatation of the abdominal aorta is seen. No enlarged abdominal or pelvic lymphadenopathy is evident. The appendix is normal. Terminal ileum is unremarkable. No obstructive bowel pattern is evident. No free air or free fluid or mesenteric edema is seen. Right lung base atelectasis is seen. No lytic process is evident. IMPRESSION: Chronic dilatation of the extra hepatic bile duct most likely secondary to reservoir effect after a cholecystectomy. Correlation with liver function tests is recommended. No acute abnormality of the abdomen or pelvis. Stable left adrenal adenoma. Electronically signed by: Umm Landeros MD (02/09/2019 3:18 PM) [facility] DICTATED and SIGNED BY: UMM LANDEROS MD DATE: 02/09/19 1513 Course & Med Decision Making Course & Med Decision Making Pertinent Labs and Imaging studies reviewed. (See chart for details) Will get labs, CT, and give supportive care. Labs and CT are unremarkable. Urine has trace leukocytes. Will treat for UTI. Abdominal pain and diarrhea are likely viral in nature. Dragon Disclaimer Dragon Disclaimer This electronic medical record was generated, in whole or in part, using a voice recognition dictation system. Departure Departure Impression: Primary Impression: UTI (urinary tract infection) Disposition: 01 HOME, SELF-CARE Condition: STABLE Referrals: WARREN CALDERON MD (PCP) Patient Instructions: Urinary Tract Infection Additional Instructions: Thank you for visiting [facility]. We appreciate you trusting us with your care. If any additional problems come up don't hesitate to return to visit us. Please follow up with your primary care provider so they can plan additional care if needed and know about the problem that you had. If symptoms worsen come back to the Emergency Department. Any concerning symptoms that start such as chest pain, shortness of air, weakness or numbness on one side of the body, running high fevers or any other concerning symptoms return to the ER. Scripts Nitrofurantoin Monohyd/M-Cryst (MACROBID 100 MG CAPSULE) 100 Mg Capsule 1 CAP PO BID for 5 Days, #10 CAP Prov: LYNN BRYAN APRN 02/09/19 LYNN BRYAN APRN Feb 09, 2019 14:18
[2019-02-09 14:29] LABS: BASO % 1 % (0-3); EOS # 0.2 x10^3/uL (0.0-0.7); EOS % 4 % (0-3); HEMATOCRIT 42.4 % (36.0-47.0); HEMOGLOBIN 14.4 g/dL (12.0-15.5); LYMPH # 2.6 x10^3/uL (1.0-4.8); LYMPH % 47 % (24-48); MEAN CORPUSCULAR HEMOGLOBIN 29 pg (25-35); MEAN CORPUSCULAR HGB CONC 34 g/dL (31-37); MEAN CORPUSCULAR VOLUME 84 fL (79-100); MONO # 0.4 x10^3/uL (0.0-1.1); MONO % 8 % (0-9); NEUT # 2.3 x10^3/uL (1.8-7.7); NEUT % 41 % (31-73); PLATELET COUNT 200 x10^3/uL (140-400); RED BLOOD COUNT 5.04 x10^6/uL (3.50-5.40); RED CELL DISTRIBUTION WIDTH 14.2 % (11.5-14.5); WHITE BLOOD COUNT 5.5 x10^3/uL (4.0-11.0)
[2019-02-09 14:35] LABS: CALCIUM 9.5 mg/dL (8.5-10.1); CREATININE 0.9 mg/dL (0.6-1.0); GFR 64.3
[2019-02-09 14:37] LABS: BILIRUBIN,URINE NEGATIVE (NEG); CLARITY,URINE CLEAR; COLOR,URINE YELLOW; NITRITE,URINE NEGATIVE (NEG); PROTEIN,URINE NEGATIVE (NEG-TRACE); UROBILINOGEN,URINE 0.2 mg/dL (0.2 mg/dL)
[2019-02-09 14:39] LABS: SQUAMOUS EPITHELIAL CELL,UR MANY /LPF
[2019-02-09 14:41] LABS: TOTAL BILIRUBIN 0.6 mg/dL (0.2-1.0)
[2019-02-09 14:41] LABS: BACTERIA,URINE MODERATE /HPF (0-FEW); RBC,URINE RARE /HPF (0-2); WBC,URINE OCC /HPF (0-4)
[2019-02-09] MEDS ORDERED: IOHEXOL 300 MG/ML 100ML VIAL. IV ONE (14:45)
[2019-02-09] MEDS ORDERED: CONTRAST GIVEN. MC PRN (14:45)
--- NOTE | 2019-02-09 15:20 | RAD ---
CT study of the abdomen and pelvis with contrast Clinical indications: Right lower quadrant abdominal pain for 2 days. TECHNIQUE: After IV infusion of 75 cc Omnipaque 300, helical CT scanning of the abdomen and pelvis was performed. GI contrast was not administered. This may decrease the sensitivity to detect GI tract pathology. PQRS COMPLIANCE STATEMENT One or more of the following individualized dose reduction techniques were utilized for this study: 1. Automated exposure control 2. Adjustment of the mA and/or kV according to patient size 3. Use of iterative reconstruction technique COMPARISON: January 10, 2016. FINDINGS: No liver and spleen and pancreas are normal. The gallbladder is surgically absent. There is dilatation of the extrahepatic biliary tree down into the pancreas. The common bile duct measures 13 mm in caliber which is dilated. This is unchanged from the previous study. No right adrenal mass is evident. There is a nodule of the left adrenal gland measuring 2.2 cm in size. This is unchanged consistent with an adrenal adenoma. No hydronephrosis is seen. There is a small lower pole right renal cyst which has not changed significantly. No focal aneurysmal dilatation of the abdominal aorta is seen. No enlarged abdominal or pelvic lymphadenopathy is evident. The appendix is normal. Terminal ileum is unremarkable. No obstructive bowel pattern is evident. No free air or free fluid or mesenteric edema is seen. Right lung base atelectasis is seen. No lytic process is evident. IMPRESSION: Chronic dilatation of the extra hepatic bile duct most likely secondary to reservoir effect after a cholecystectomy. Correlation with liver function tests is recommended. No acute abnormality of the abdomen or pelvis. Stable left adrenal adenoma. Electronically signed by: Scott Landeros MD (02/09/2019 3:18 PM) [place] [id number]
[2019-02-09 15:30] VITALS: BP 123/60
[2019-02-09] MEDS ORDERED: NITR100C62 PO (15:30)
== END 2019-02-09 16:07 | disposition home or self-care (01) ==
LOC: ER 13:15
DX: N39.0 Urinary tract infection, site not specified (principal); R11.2 Nausea with vomiting, unspecified; Z87.442 Personal history of urinary calculi; Z97.10 Presence of artificial limb (complete) (partial), unspecified; Z90.49 Acquired absence of other specified parts of digestive tract; Z88.0 Allergy status to penicillin; Z88.1 Allergy status to other antibiotic agents; Z88.2 Allergy status to sulfonamides; Z91.010 Allergy to peanuts
CPT/HCPCS: 36415; 74177; 80053; 81001; 83690; 85025; 87086; 96361; 96374; 99285; J2405; J7030; Q9967

== ENCOUNTER 2019-03-01 16:33 | Emergency (ER) | payer OTHER ==
[~2019-03-01] VITALS: Ht 157.5 cm; Wt 97.5 kg
[~2019-03-01 16:33] MED LIST changes: +NITR100C62 PO
[2019-03-01 17:15] VITALS: BP 128/88
[2019-03-01 17:18] LABS: BASO # 0.1 x10^3/uL (0.0-0.2); BASO % 1 % (0-3); EOS # 0.3 x10^3/uL (0.0-0.7); EOS % 5 % (0-3); HEMATOCRIT 39.2 % (36.0-47.0); HEMOGLOBIN 13.5 g/dL (12.0-15.5); LYMPH # 2.3 x10^3/uL (1.0-4.8); LYMPH % 41 % (24-48); MEAN CORPUSCULAR HEMOGLOBIN 29 pg (25-35); MEAN CORPUSCULAR HGB CONC 34 g/dL (31-37); MEAN CORPUSCULAR VOLUME 83 fL (79-100); MONO # 0.5 x10^3/uL (0.0-1.1); MONO % 9 % (0-9); NEUT # 2.6 x10^3/uL (1.8-7.7); NEUT % 45 % (31-73); PLATELET COUNT 208 x10^3/uL (140-400); RED BLOOD COUNT 4.72 x10^6/uL (3.50-5.40); RED CELL DISTRIBUTION WIDTH 13.8 % (11.5-14.5); WHITE BLOOD COUNT 5.7 x10^3/uL (4.0-11.0)
[2019-03-01 17:30] LABS: CALCIUM 9.6 mg/dL (8.5-10.1); CREATININE 0.9 mg/dL (0.6-1.0); GFR 64.3; POTASSIUM 3.9 mmol/L (3.5-5.1)
--- NOTE | 2019-03-01 17:32 | RAD ---
Exam: Chest one view INDICATION: Syncopal episode TECHNIQUE: Frontal view of the chest Comparisons: 07/08/2016 FINDINGS: The cardiomediastinal silhouette and pulmonary vessels are within normal limits. The lung and pleural spaces are clear. IMPRESSION: No acute cardiopulmonary process. Electronically signed by: Jermaine Barnes MD (03/01/2019 5:29 PM) [facility]
[2019-03-01 17:35] LABS: ALBUMIN 3.7 g/dL (3.4-5.0); MAGNESIUM 2.1 mg/dL (1.8-2.4); TOTAL BILIRUBIN 0.5 mg/dL (0.2-1.0); TOTAL PROTEIN 7.4 g/dL (6.4-8.2)
[2019-03-01 17:36] LABS: BILIRUBIN,URINE NEGATIVE (NEG); CLARITY,URINE CLEAR; NITRITE,URINE NEGATIVE (NEG); PROTEIN,URINE NEGATIVE (NEG-TRACE); UROBILINOGEN,URINE 0.2 mg/dL (0.2 mg/dL)
[2019-03-01 17:40] LABS: COLOR,URINE STRAW
[2019-03-01 17:42] LABS: BACTERIA,URINE FEW /HPF (0-FEW); RBC,URINE RARE /HPF (0-2); SQUAMOUS EPITHELIAL CELL,UR MOD /LPF; WBC,URINE RARE /HPF (0-4)
--- NOTE | 2019-03-01 17:52 | RAD ---
Exam: CT head INDICATION: Syncopal episode TECHNIQUE: Sequential axial images through the head were obtained without the administration of IV contrast. Comparisons: None FINDINGS: No focal parenchymal lesion or hemorrhage is identified. There is no midline shift or sulcal effacement. No acute vascular territory infarction is identified. Ng-white distinction is preserved. The ventricular system is within normal limits without compression hydrocephalus. The basal cisterns are well maintained. The visualized portions of the paranasal sinuses and mastoid air cells are well-pneumatized. No acute fractures. IMPRESSION: No acute intracranial abnormality. Exposure: One or more of the following in the visualized dose reduction techniques were utilized for this examination: 1. Automated exposure control 2. Adjustment of the MA and/or KV according to patient size Use of iterative of reconstructive technique Electronically signed by: Jermaine Barnes MD (03/01/2019 5:49 PM) [facility]
--- NOTE | 2019-03-01 17:56 | PHYS DOC ---
Past Medical History Past Medical History: Fibromyalgia, Kidney Stone, Pancreatitis, Other Additional Past Medical Histor: Seasonal allergies, Fibromyalgia, NEUROPATHY (MARILIA JUAREZ APRN) Past Surgical History: Cholecystectomy, Hysterectomy Additional Past Surgical Histo: Bilateral oophrectomy (MARILIA JUAREZ APRN) Alcohol Use: None Drug Use: None (MARILIA JUAREZ APRN) Adult General Chief Complaint Chief Complaint: SYNCOPE HPI HPI Patient is a 58 year old female who presents to the emergency department via EMS today after syncopal episode. Patient states she was at work and she was just standing when all of a sudden she passed out and her fellow coworkers kept her from hitting the ground. Per EMS patient's loss of consciousness was approximately 1 minute. Patient states she has experienced nausea, vomiting, and diarrhea for the last 6 days. She denies any nausea or vomiting in the last 24 hours. She reports 10 episodes of diarrhea in the last 24 hours. She denies any blood in her stool, fever, back pain, abdominal pain, chest pain, palpitations, vision changes, ear pain, or sore throat. She states that she has had some nasal congestion and a dry cough. Patient also reports having pain in both of her tem ples bilaterally today. She saw her doctor last and was diagnosed with a viral infection. She currently denies any pain. Her only medical history includes neuropathy, her surgical history includes cholecystectomy and hysterectomy. (MARILIA JUAREZ APRN) Review of Systems Review of Systems Constitutional: Denies fever or chills [] Eyes: Denies change in visual acuity, redness, or eye pain [] HENT: Denies ear pain or sore throat; see HPI Respiratory: Denies wheezing or shortness of breath; see HPI Cardiovascular: No additional information not addressed in HPI [] GI: See HPI : Denies dysuria or hematuria [] Musculoskeletal: Denies back pain or joint pain [] Integument: Denies rash or skin lesions [] Neurologic: Denies focal weakness or sensory changes; reports dizziness with position changes, see HPI Endocrine: Denies polyuria or polydipsia [] Complete systems were reviewed and found to be within normal limits, except as documented in this note. (MARILIA JUAREZ APRN) Current Medications Current Medications Current Medications Medications (Trade) Dose Ordered Sig/Cortney Start Time Stop Time Status Last Admin Dose Admin Sodium Chloride 1,000 ml @ 1,000 mls/hr 1X ONCE 03/01/19 18:00 03/01/19 18:59 DC 03/01/19 17:54 1,000 MLS/HR (SUKHDEEP ROCK MD) Allergies Allergies Allergies Coded Allergies Type Severity Reaction Last Updated Verified Cephalexin Monohydrate Allergy Intermediate Rash 12/30/17 Yes Penicillins Allergy Intermediate Rash 12/30/17 Yes Sulfa (Sulfonamide Antibiotics) Allergy Intermediate Swelling 12/30/17 Yes peanut Allergy Intermediate Rash 12/30/17 Yes (SUKHDEEP ROCK MD) Physical Exam Physical Exam Constitutional: Well developed, well nourished, no acute distress, non-toxic appearance, obese [] HENT: Normocephalic, atraumatic, bilateral external ears normal, oropharynx moist, no oral exudates, nose normal. [] Eyes: PERRLA, EOMI, conjunctiva normal, no discharge. [] Neck: Normal range of motion, no stridor. [] Cardiovascular:Heart rate regular rhythm, no murmur [] Lungs & Thorax: Bilateral breath sounds clear to auscultation [] Abdomen: Bowel sounds normal, soft, no tenderness, no masses, no pulsatile masses. [] Skin: Warm, dry, no erythema, no rash. [] Back: No tenderness, no CVA tenderness. [] Extremities: No cyanosis, no clubbing, ROM intact, no edema. [] Neurologic: Alert and oriented X 3, no focal deficits noted. [] Psychologic: Affect normal, judgement normal, mood normal. [] (MARILIA JUAREZ APRN) Current Patient Data Vital Signs Vital Signs Date Time Temp Pulse Resp B/P (MAP) Pulse Ox O2 Delivery O2 Flow Rate FiO2 03/01/19 17:15 72 128/88 (101) 94 Room Air 03/01/19 16:40 98.4 18 98.4 (SUKHDEEP ROCK MD) Lab Values Laboratory Tests Test 03/01/19 17:10 03/01/19 17:30 White Blood Count 5.7 x10^3/uL (4.0-11.0) Red Blood Count 4.72 x10^6/uL (3.50-5.40) Hemoglobin 13.5 g/dL (12.0-15.5) Hematocrit 39.2 % (36.0-47.0) Mean Corpuscular Volume 83 fL (79-100) Mean Corpuscular Hemoglobin 29 pg (25-35) Mean Corpuscular Hemoglobin Concent 34 g/dL (31-37) Red Cell Distribution Width 13.8 % (11.5-14.5) Platelet Count 208 x10^3/uL (140-400) Neutrophils (%) (Auto) 45 % (31-73) Lymphocytes (%) (Auto) 41 % (24-48) Monocytes (%) (Auto) 9 % (0-9) Eosinophils (%) (Auto) 5 % (0-3) H Basophils (%) (Auto) 1 % (0-3) Neutrophils # (Auto) 2.6 x10^3/uL (1.8-7.7) Lymphocytes # (Auto) 2.3 x10^3/uL (1.0-4.8) Monocytes # (Auto) 0.5 x10^3/uL (0.0-1.1) Eosinophils # (Auto) 0.3 x10^3/uL (0.0-0.7) Basophils # (Auto) 0.1 x10^3/uL (0.0-0.2) Prothrombin Time 15.0 SEC (11.7-14.0) H Prothrombin Time INR 1.2 (0.8-1.1) H Activated Partial Thromboplast Time 33 SEC (24-38) Sodium Level 143 mmol/L (136-145) Potassium Level 3.9 mmol/L (3.5-5.1) Chloride Level 108 mmol/L (98-107) H Carbon Dioxide Level 29 mmol/L (21-32) Anion Gap 6 (6-14) Blood Urea Nitrogen 9 mg/dL (7-20) Creatinine 0.9 mg/dL (0.6-1.0) Estimated GFR (Cockcroft-Gault) 64.3 BUN/Creatinine Ratio 10 (6-20) Glucose Level 97 mg/dL (70-99) Calcium Level 9.6 mg/dL (8.5-10.1) Magnesium Level 2.1 mg/dL (1.8-2.4) Total Bilirubin 0.5 mg/dL (0.2-1.0) Aspartate Amino Transferase (AST) 34 U/L (15-37) Alanine Aminotransferase (ALT) 39 U/L (14-59) Alkaline Phosphatase 63 U/L (46-116) Troponin I Quantitative < 0.017 ng/mL (0.000-0.055) Total Protein 7.4 g/dL (6.4-8.2) Albumin 3.7 g/dL (3.4-5.0) Albumin/Globulin Ratio 1.0 (1.0-1.7) Urine Collection Type Clean catch Urine Color Straw Urine Clarity Clear Urine pH 6.0 Urine Specific [place] <=1.005 Urine Protein Negative mg/dL (NEG-TRACE) Urine Glucose (UA) Negative mg/dL (NEG) Urine Ketones (Stick) Negative mg/dL (NEG) Urine Blood Negative (NEG) Urine Nitrite Negative (NEG) Urine Bilirubin Negative (NEG) Urine Urobilinogen Dipstick 0.2 mg/dL (0.2 mg/dL) Urine Leukocyte Esterase Negative (NEG) Urine RBC Rare /HPF (0-2) Urine WBC Rare /HPF (0-4) Urine Squamous Epithelial Cells Mod /LPF Urine Bacteria Few /HPF (0-FEW) Laboratory Tests 03/01/19 17:10 Laboratory Tests 03/01/19 17:10 (SUKHDEEP ROCK MD) EKG EKG 1643- SR rate 76, NO STEMI read by Dr. Harry[] (MARILIA JUAREZ APRN) Radiology/Procedures Radiology/Procedures PROCEDURE: CHEST AP ONLY Exam: Chest one view INDICATION: Syncopal episode TECHNIQUE: Frontal view of the chest Comparisons: 07/08/2016 FINDINGS: The cardiomediastinal silhouette and pulmonary vessels are within normal limits. The lung and pleural spaces are clear. IMPRESSION: No acute cardiopulmonary process.[] PROCEDURE: CT HEAD WO CONTRAST Exam: CT head INDICATION: Syncopal episode TECHNIQUE: Sequential axial images through the head were obtained without the administration of IV contrast. Comparisons: None FINDINGS: No focal parenchymal lesion or hemorrhage is identified. There is no midline shift or sulcal effacement. No acute vascular territory infarction is identified. Ng-white distinction is preserved. The ventricular system is within normal limits without compression hydrocephalus. The basal cisterns are well maintained. The visualized portions of the paranasal sinuses and mastoid air cells are well-pneumatized. No acute fractures. IMPRESSION: No acute intracranial abnormality. (MARILIA JUAREZ APRN) Course & Med Decision Making Course & Med Decision Making Pertinent Labs and Imaging studies reviewed. (See chart for details) dx:diarrhea, syncope CBC unremarkable, CMP unremarkable, UA unremarkable, VSS, EKG no acute changes CT head negative for acute findings, CXR negative Orthostatic blood pressures WNL PT was given 1L of NS. Reports feeling better. Follow up with PCP in 1-2 days, return to ER if symptoms worsen, Increase clear fluids, follow diet instructions given. Patient verbalized an understanding of home care, medications, follow-up, and return to ED instructions and was in agreement with the plan of care. [] (MARILIA JUAREZ APRN) Dragon Disclaimer Dragon Disclaimer This electronic medical record was generated, in whole or in part, using a voice recognition dictation system. (MARILIA JUAREZ APRN) Departure Departure Impression: Primary Impression: Syncope Additional Impression: Diarrhea Disposition: 01 HOME, SELF-CARE Condition: STABLE Referrals: WARREN CALDERON MD (PCP) Patient Instructions: Diarrhea, [id number], Diet for Diarrhea, Adult, Syncope, [id number] Additional Instructions: Increase clear fluids. Follow diet instructions provided. Change positions slow ly. Follow up with Primary care doctor in 1-2 days, return to the ER if symptoms worsen. Attending Signature I have participated in the care of this patient and I have reviewed and agree with all pertinent clinical information above including history, exam, and recommendations. (SUKHDEEP ROCK MD) Problem Qualifiers Primary Impression: Syncope Syncope type: unspecified Qualified Codes: R55 - Syncope and collapse Additional Impression: Diarrhea Diarrhea type: unspecified type Qualified Codes: R19.7 - Diarrhea, unspecified MARILIA JUAREZ APRN Mar 01, 2019 17:56 SUKHDEEP ROCK MD Mar 02, 2019 03:02
[2019-03-01] MEDS ORDERED: IV NORMAL SALINE 1000ML BAG 1,000 ML IV ONE (18:00)
--- NOTE | 2019-03-02 06:19 | EKG ---
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
== END 2019-03-01 19:07 | disposition home or self-care (01) ==
LOC: ER 16:33
DX: R55 Syncope and collapse (principal); R19.7 Diarrhea, unspecified; R42 Dizziness and giddiness; Z90.49 Acquired absence of other specified parts of digestive tract; Z90.710 Acquired absence of both cervix and uterus; Z87.442 Personal history of urinary calculi; Z88.1 Allergy status to other antibiotic agents; Z88.0 Allergy status to penicillin; Z88.2 Allergy status to sulfonamides; Z91.010 Allergy to peanuts
CPT/HCPCS: 36415; 70450; 71045; 80053; 81001; 83735; 84484; 85025; 85610; 85730; 93005; 96360; 99285; J7030